=== PATIENT | female | born 1960 | race Caucasian/White ===

== ENCOUNTER 2017-01-28 15:27 | Emergency (ER) | payer MEDICAID ==
[2017-01-28 15:28] VITALS: BMI 25.9
--- NOTE | 2017-01-28 16:04 | C.PDOC ---
56F c/o abdominal pain, nausea, vomiting, diarrhea. she says she ate some chicken soup that "smelled strong" 4 days ago and started feeling pain and nausea and had watery diarrhea that night. she then had some more of the soup the next day and again developed pain and nausea and vomited once that day. since then she has not vomited but has felt nauseated worse when she eats. she also reports some sob for the last week- says she has asthma and also emphysema and took 3 doses of prednisone she had left over at home. she also says she had a lung cancer removed several months ago and that as fat as she knows the cancer is gone. (Laith García) <Gary Lai - Last Filed: 01/28/17 20:44> <Laith García - Last Filed: 01/31/17 08:12> Time Seen by Provider: 01/28/17 15:57 Chief Complaint (Nursing): Shortness Of Breath Past Medical History Reviewed: Historical Data, Nursing Documentation, Vital Signs Family History: States: No Known Family Hx <Gary Lai - Last Filed: 01/28/17 20:44> - Medical History PMH: Anxiety, Asthma, COPD, Depression, Diabetes, Emphysema, HTN, Hypercholesterolemia, Hyperlipidemia, Kidney Stones, Schizophrenia, Seizures Surgical History: Appendectomy, Family History: States: Other Other Family History: nc - Social History Hx Tobacco Use: Yes Hx Alcohol Use: No Hx Substance Use: No - Immunization History Hx Tetanus Toxoid Vaccination: No Hx Influenza Vaccination: No Hx Pneumococcal Vaccination: No <Laith García - Last Filed: 01/31/17 08:12> Vital Signs: Last Vital Signs Temp 99.0 F 01/28/17 20:45 Pulse 93 H 01/28/17 20:45 Resp 18 01/28/17 20:45 BP 93/57 L 01/28/17 20:45 Pulse Ox 95 01/28/17 20:45 - [facility] Procedures CLOSURE SKIN & SUBCUTANEOUS NEC (11/29/14) IMMOBILIZ/WOUND ATTN NEC (10/23/14) TETANUS TOXOID ADMINIST (11/29/14) Review Of Systems Constitutional: Positive for: Weakness, Malaise. Negative for: Fever Cardiovascular: Negative for: Chest Pain Respiratory: Positive for: Shortness of Breath. Negative for: Cough, Hemoptysis Gastrointestinal: Positive for: Nausea, Vomiting, Abdominal Pain, Diarrhea Genitourinary: Negative for: Dysuria <Laith García - Last Filed: 01/31/17 08:12> Physical Exam - Physical Exam Appears: Well, Non-toxic, No Acute Distress Skin: Warm, Dry Eye(s): bilateral: PERRL Nose: No Epistaxis Oral Mucosa: Moist Neck: Supple Cardiovascular: Rhythm Regular Respiratory: No Decreased Breath Sounds, No Accessory Muscle Use, No Rales, No Rhonchi, No Wheezing Gastrointestinal/Abdominal: Soft, Tenderness (mild diffuse non-focal), No Distention, No Guarding, No Rebound Pulses: Left Radial: Normal, Right Radial: Normal Neurological/Psych: Oriented x3, Normal Motor, Normal Sensation <Laith García P - Last Filed: 01/31/17 08:12> ED Course And Treatment - Laboratory Results Result Diagrams: 01/28/17 16:43 01/28/17 16:43 Pulse Ox Interpretation: Normal Reevaluation Time: 20:44 Reassessment Condition: Improved <Gary Lai - Last Filed: 01/28/17 20:44> - Laboratory Results Result Diagrams: 01/28/17 16:43 01/28/17 16:43 O2 Sat by Pulse Oximetry: 97 <Laith García - Last Filed: 01/31/17 08:12> Disposition Counseled Patient/Family Regarding: Studies Performed, Diagnosis, Need For Followup, Rx Given - Disposition Disposition Time: 19:00 <Gary Lai - Last Filed: 01/28/17 20:44> <Laith García - Last Filed: 01/31/17 08:12> - Disposition Referrals: [facility] at [facility] [Outside] [facility] [Outside] Disposition: HOME/ ROUTINE Condition: FAIR Prescriptions: Nitrofurantoin Macrocrystals [Macrobid] 1 cap PO BID #14 cap Ondansetron ODT [Zofran ODT] 1 odt PO BID PRN #6 odt PRN Reason: Nausea/Vomiting Instructions: Urinary Tract Infection in Women (DC), Gas and Bloating (ED), Abdominal Pain (ED) Forms: [facility] ([place]) - Clinical Impression Clinical Impression: Abdominal pain, UTI (urinary tract infection) Physician Patient Turnover Patient Signed Over To: Gary Lai Handoff Comments: pending ct <Laith García - Last Filed: 01/31/17 08:12>
[2017-01-28] MEDS ORDERED: Sodium Chloride 0.9% 1,000 ML IV ONE (16:15)
[2017-01-28] MEDS ORDERED: Albuterol-Ipratrop 3 mg / 0.5 (3 ml) UD IH STA (16:15)
[2017-01-28] MEDS ORDERED: Albuterol-Ipratrop 3 mg / 0.5 (3 ml) UD ONE ×2 (16:48→18:47)
[2017-01-28 16:56] LABS: BASO # 0.1 K/uL (0.0-0.2); BASO % 0.7 % (0.0-2.0); EOS # 0.2 K/uL (0.0-0.7); EOS % 1.2 % (0.0-4.0); HEMATOCRIT 39.4 % (34.0-47.0); LYMPH # 2.9 K/uL (1.0-4.3); LYMPH % 19.6 % (20.0-40.0); MEAN CELL VOLUME 90.5 fL (81.0-99.0); MEAN CORPUSCULAR HEMOGLOBIN 30.5 pg (27.0-31.0); MEAN CORPUSCULAR HGB CONC 33.8 g/dL (33.0-37.0); MEAN PLATELET VOLUME 8.1 fL (7.2-11.7); MONO # 1.1 K/uL (0.0-0.8); MONO % 7.5 % (0.0-10.0); RED CELL DISTRIBUTION WIDTH 12.7 % (11.5-14.5); WHITE BLOOD COUNT 14.9 K/uL (4.8-10.8)
[2017-01-28] MEDS ORDERED: Sodium Chloride 0.9% 1,000 ML ONE (16:56)
--- NOTE | 2017-01-28 16:57 | RAD ---
HISTORY: sob COMPARISON: Comparison is made to 08/21/2014 TECHNIQUE: Chest PA and lateral FINDINGS: LUNGS: No evidence of new infiltrate or consolidation in the lungs. PLEURA: No significant pleural effusion identified. No pneumothorax apparent. CARDIOVASCULAR: Normal. OSSEOUS STRUCTURES: No significant abnormalities. VISUALIZED UPPER ABDOMEN: Normal. OTHER FINDINGS: None. IMPRESSION: No active disease.
[2017-01-28 17:02] LABS: CHLORIDE 98 mmol/L (98-107); SODIUM 143 mmol/L (132-148)
[2017-01-28 17:03] LABS: POTASSIUM 3.4 mmol/L (3.6-5.2)
[2017-01-28 17:05] LABS: ALB/GLOB RATIO 1.4 (1.0-2.1); ALKALINE PHOSPHATASE 67 U/L (38-126); ALT/SGPT 28 U/L (9-52); AST/SGOT 22 U/L (14-36); BILIRUBIN,TOTAL 0.4 mg/dL (0.2-1.3); BLOOD UREA NITROGEN 19 mg/dL (7-17); CARBON DIOXIDE 25 mmol/L (22-30); GFR AFRICAN-AMERICAN > 60; GLUCOSE,RANDOM 84 mg/dL (65-105); TOTAL PROTEIN 7.5 g/dL (6.3-8.3)
[2017-01-28 17:06] LABS: CALCIUM 9.8 mg/dl (8.6-10.4)
[2017-01-28 17:21] LABS: RBC URINE 4 /hpf (0-3); URINE BILIRUBIN NEGATIVE (NEGATIVE); URINE BLOOD NEGATIVE (NEGATIVE); URINE CALCIUM OXALATE CRYSTALS FEW /hpf (<OCC); URINE GLUCOSE (UA) NORMAL (Normal); URINE KETONE TRACE mg/dL (NEGATIVE); URINE LEUKOCYTE ESTERASE 1+ Leu/uL (Negative); URINE PROTEIN 2+ mg/dL (NEGATIVE); URINE UROBILINOGEN NORMAL mg/dL (0.2-1.0); WBC URINE 29 /hpf (0-5)
[2017-01-28 17:23] LABS: URINE COLOR YELLOW (YELLOW)
[2017-01-28 17:49] VITALS: RESP 18
[2017-01-28] MEDS ORDERED: cefTRIAXone IV 1 gm in Dextros 50 ML IVPB ONE (18:38)
[2017-01-28] MEDS ORDERED: Iodixanol 320 mg/ml 150 ml Bottle IV ONE (18:47)
--- NOTE | 2017-01-28 19:53 | CT ---
EXAM: CT Abdomen and Pelvis With Intravenous Contrast EXAM DATE/TIME: Exam ordered 01/28/2017 5:52 PM CLINICAL HISTORY: 56 years old, female; Pain; Abdominal pain; Generalized; Patient HX: H/o lung cancer TECHNIQUE: Axial computed tomography images of the abdomen and pelvis with intravenous contrast. All CT scans at this facility use one or more dose reduction techniques, viz.: automated exposure control; ma/kV adjustment per patient size (including targeted exams where dose is matched to indication; i.e. head); or iterative reconstruction technique. Coronal and sagittal reformatted images were created and reviewed. CONTRAST: 100 mL of visipaque 320 administered intravenously. COMPARISON: No relevant prior studies available. FINDINGS: Lower thorax:A coarse linear opacity in the lingula suggests scar or discoid atelectasis.Hypoventilatory changes are noted in the right lung base. There is mild prominence of the centrilobular core structures in the subpleural portion of the left lung base. This may be hypoventilatory in nature but followup is recommended. ABDOMEN: Liver: Unremarkable. No mass. Gallbladder and bile ducts: Unremarkable. No calcified stones. No ductal dilation. Pancreas: Unremarkable. No mass. No ductal dilation. Spleen: Unremarkable. No splenomegaly. Adrenals: Unremarkable. No mass. Kidneys and ureters: There is a 1.2 cm low density lesion in the upper pole of the left kidney with a density measurement of 20 H. The right kidney is absent. No hydronephrosis. Stomach and bowel: Unremarkable. No obstruction. No mucosal thickening. Appendix: No findings to suggest acute appendicitis. PELVIS: Bladder: Unremarkable. No mass. Reproductive: The uterus is absent. ABDOMEN and PELVIS: Intraperitoneal space: Unremarkable. No free air. No significant fluid collection. Bones/joints: No acute fracture. No dislocation. Soft tissues: Unremarkable. Vasculature: Unremarkable. No abdominal aortic aneurysm. Lymph nodes: Unremarkable. No enlarged lymph nodes. IMPRESSION: 1. No acute findings. 2. Absence of the right kidney. The right adrenal gland is normal. 3. Left renal cyst. 4. Mild prominence of the centrilobular core structures in the subpleural portion of the left lung base. This may be hypoventilatory in nature but followup is recommended. Recommend follow-up chest CT at 3-6 months to confirm persistence. If stable, chest CT at 2 and 4 years.
[2017-01-28 20:45] VITALS: BP 93/57; PULSE 93; TEMP 99
[2017-01-31 08:12] VITALS: O2SAT 97
== END 2017-01-28 21:06 | disposition home or self-care (01) ==
LOC: C.ER 15:27
DX: N39.0 Urinary tract infection, site not specified (principal); R10.9 Unspecified abdominal pain
CPT/HCPCS: 71020; 74177; 80053; 81001; 83690; 84484; 85025; 87086; 94640; 96361; 96365; 96375; 99285; J0696; J2405; J7040; Q9967

== ENCOUNTER 2018-09-01 18:32 | Inpatient (IN) | payer MEDICAID ==
[2018-09-01 18:32] VITALS: BMI 25.9
--- NOTE | 2018-09-01 19:14 | C.PDOC ---
History Of Present Illness 58 year old female with Hx of anxiety, asthma, COPD not on home o2, HTN, high cholesterol, diabetes, surgical Hx of appendectomy, presents with abdominal pain and multiple episodes of diarrhea today after eating popeyes shrimp around 5pm. Patient reports the symptoms are associated with nausea but no vomiting. Denies any fall, trauma, bloody stool, or black stools. Reports some chills but denies fever, nights sweats, SOB, or chest pain. Patient finished zpack yesterday for cold symptoms. She has not taken any medication for her abdominal pain or diarrhea. Time Seen by Provider: 09/01/18 19:14 Chief Complaint (Nursing): Abdominal Pain History Per: Patient History/Exam Limitations: no limitations Onset/Duration Of Symptoms: Hrs Current Symptoms Are (Timing): Still Present Context: Food Location Of Pain/Discomfort: Epigastric, Suprapubic Quality Of Discomfort: Unable To Describe Associated Symptoms: Chills, Nausea, Diarrhea. denies: Fever, Vomiting, Chest Pain, Other (Bloody stools, Black stools, SOB, Night sweats) Exacerbating Factors: None Alleviating Factors: None Recent travel outside of the [place]: No Abnormal Vaginal Bleeding: No Past Medical History Reviewed: Historical Data, Nursing Documentation, Vital Signs Vital Signs: Last Vital Signs Temp 98.9 F 09/01/18 18:42 Pulse 103 H 09/01/18 18:42 Resp 22 09/01/18 18:42 BP 121/91 H 09/01/18 18:42 Pulse Ox 98 09/01/18 18:42 Primary Care Provider: Patel Estes Jr. - Medical History PMH: Anxiety, Asthma, COPD, Depression, Diabetes, Emphysema, HTN, Hypercholesterolemia, Hyperlipidemia, Kidney Stones, Schizophrenia, Seizures Surgical History: Appendectomy, - [facility] Procedures CLOSURE SKIN & SUBCUTANEOUS NEC (11/29/14) IMMOBILIZ/WOUND ATTN NEC (10/23/14) TETANUS TOXOID ADMINIST (11/29/14) Family History: States: Unknown Family Hx - Social History Hx Tobacco Use: Yes Hx Alcohol Use: No Hx Substance Use: No - Immunization History Hx Tetanus Toxoid Vaccination: No Hx Influenza Vaccination: No Hx Pneumococcal Vaccination: No Review Of Systems Constitutional: Negative for: Fever, Sweats Cardiovascular: Negative for: Chest Pain, Palpitations Respiratory: Negative for: Cough, Shortness of Breath Gastrointestinal: Positive for: Nausea, Abdominal Pain, Diarrhea Genitourinary: Negative for: Dysuria, Hematuria Musculoskeletal: Negative for: Back Pain Skin: Negative for: Rash Neurological: Negative for: Weakness, Numbness Physical Exam - Physical Exam Appears: Non-toxic Skin: Normal Color, Warm Head: Atraumatic, Normacephalic Eye(s): bilateral: Normal Inspection, PERRL, EOMI Nose: Normal Oral Mucosa: Moist Tongue: Normal Appearing Lips: Normal Appearing Throat: Normal, No Erythema, No Exudate, No Drooling, No Mass Neck: Normal, Supple, Other (no meningeal signs) Chest: Symmetrical, No Tenderness Cardiovascular: Rhythm Regular Respiratory: Normal Breath Sounds, No Rales, No Rhonchi, No Wheezing Gastrointestinal/Abdominal: Soft, Tenderness (Epigastric, Suprapubic), No Distention, No Guarding, No Rebound Back: Normal Inspection, No CVA Tenderness, No Vertebral Tenderness Extremity: Normal ROM, No Tenderness Extremity: Bilateral: Atraumatic, Normal Color And Temperature Pulses: Left Dorsalis Pedis: Normal, Right Dorsalis Pedis: Normal Neurological/Psych: Oriented x3, Normal Speech, Normal Cognition, No Normal Cranial Nerves, No Cerebellar Signs, Normal Motor Gait: Steady ED Course And Treatment - Laboratory Results Result Diagrams: 09/02/18 08:09 09/02/18 08:09 O2 Sat by Pulse Oximetry: 98 (room air) Pulse Ox Interpretation: Normal Medical Decision Making Medical Decision Makin yr old female p/w abd pain, diarrhea after eating shrimp and popeyes. Mild abd tpp on exam. NO CP or back pain. NO urinary complaints or vaginal d/c. No fall or trauma or rash. Gastroenteritis vs colitis, will seek imaging and labs. 1018 elevated WBC on labs, normal lactic entercolitis on ct cipro flagyl ordered pt in NAD negative cdiff appreciate consult w/ dr. carter: to tele pt in NAD, agreeable to plan. Disposition - Disposition Disposition: HOSPITALIZED Disposition Time: 22:19 Condition: STABLE - Clinical Impression Clinical Impression: Enterocolitis - Scribe Statement The provider has reviewed the documentation as recorded by the Scribe Kofi Mac All medical record entries made by the Calderonibmelissa were at my direction and personally dictated by me. I have reviewed the chart and agree that the record accurately reflects my personal performance of the history, physical exam, medical decision making, and the department course for this patient. I have also personally directed, reviewed, and agree with the discharge instructions and disposition.
[2018-09-01 19:47] LABS: BASO % 0.2 % (0.0-2.0); EOS # 0.1 K/uL (0.0-0.7); EOS % 0.6 % (0.0-4.0); LYMPH # 1.2 K/uL (1.0-4.3); LYMPH % 6.9 % (20.0-40.0); MEAN CELL VOLUME 92.4 fL (81.0-99.0); MEAN CORPUSCULAR HEMOGLOBIN 30.5 pg (27.0-31.0); MEAN PLATELET VOLUME 9.1 fL (7.2-11.7); MONO # 0.4 K/uL (0.0-0.8); MONO % 2.4 % (0.0-10.0); NEUT # 15.7 K/uL (1.8-7.0); NEUT % 89.9 % (50.0-75.0); NRBC % 0.2 % (0.0-2.0); PLATELET COUNT 311 K/uL (130-400); RBC 5.37 Mil/uL (3.80-5.20); RED CELL DISTRIBUTION WIDTH 13.1 % (11.5-14.5); WHITE BLOOD COUNT 17.5 K/uL (4.8-10.8)
[2018-09-01 19:48] LABS: HEMOGLOBIN 16.4 g/dL (11.0-16.0)
[2018-09-01] MEDS: Sodium Chloride 0.9% 1,000 ML IV SCH (19:53)
[2018-09-01] MEDS ORDERED: Sodium Chloride 0.9% 1,000 ML ONE (19:55)
[2018-09-01 20:03] LABS: ALB/GLOB RATIO 1.4 (1.0-2.1); ALBUMIN 5.2 g/dL (3.5-5.0); ALT/SGPT 33 U/L (9-52); AST/SGOT 36 U/L (14-36); BLOOD UREA NITROGEN 25 mg/dL (7-17); CALCIUM 10.5 mg/dl (8.6-10.4); GFR NON-AFRICAN AMERICAN 57; LIPASE 102 U/L (23-300)
[2018-09-01 20:26] LABS: BANDS 22 % (0-2); LYMPHOCYTE 10 % (20-40); MONOCYTE 7 % (0-10); NEUTROPHIL 61 % (50-75); TOTAL CELLS COUNTED 100
[2018-09-01 20:27] LABS: PLATELET ESTIMATE NORMAL (NORMAL)
[2018-09-01 20:53] LABS: VENOUS BLOOD GAS BASE EXCESS -5.2 mmol/L (0.0-2.0); VENOUS BLOOD GAS PCO2 51 mmHg (40-60); VENOUS BLOOD GAS PO2 19 mm/Hg (30-55); VENOUS BLOOD PH 7.25 (7.32-7.43)
[2018-09-01] MEDS ORDERED: Iohexol 300 100 ML IJ ONE (21:25)
[2018-09-01] MEDS ORDERED: Ciprofloxacin 400mg/200ml D5W 400 MG/200 ML BAG IVPB STA (22:06)
[2018-09-01] MEDS ORDERED: metroNIDAZOLE IV 500 mg/100 ml 500 MG/100 ML BAG IVPB STA (22:06)
[2018-09-01] MEDS ORDERED: Ciprofloxacin 400mg/200ml D5W 400 MG/200 ML BAG IVPB ONE (22:39)
[2018-09-01] MEDS ORDERED: metroNIDAZOLE IV 500 mg/100 ml 500 MG/100 ML BAG ONE (22:40)
[2018-09-01 22:53] VITALS: RESP 20
[2018-09-01 23:34] LABS: SQUAMOUS EPITHIAL 2 /hpf (0-5); URINE BILIRUBIN NEGATIVE (NEGATIVE); URINE BLOOD NEGATIVE (NEGATIVE); URINE CLARITY Clear (Clear); URINE COLOR Yellow (YELLOW); URINE GLUCOSE (UA) NORMAL (Normal); URINE LEUKOCYTE ESTERASE NEG Leu/uL (Negative); URINE PROTEIN NEGATIVE (NEGATIVE); URINE UROBILINOGEN NORMAL mg/dL (0.2-1.0)
[2018-09-02] MEDS: metroNIDAZOLE IV 500 mg/100 ml 500 MG/100 ML BAG IVPB SCH ×3 (05:20→20:00)
[2018-09-02] MEDS: Ciprofloxacin 400mg/200ml D5W 400 MG/200 ML BAG IVPB SCH ×2 (08:24→21:29)
[2018-09-02 08:31] LABS: BASO % 0.3 % (0.0-2.0); EOS # 0.1 K/uL (0.0-0.7); EOS % 0.8 % (0.0-4.0); LYMPH # 1.7 K/uL (1.0-4.3); LYMPH % 13.6 % (20.0-40.0); MEAN CORPUSCULAR HEMOGLOBIN 30.2 pg (27.0-31.0); MEAN CORPUSCULAR HGB CONC 32.4 g/dL (33.0-37.0); MEAN PLATELET VOLUME 8.5 fL (7.2-11.7); MONO % 8.5 % (0.0-10.0); NEUT # 9.4 K/uL (1.8-7.0); NEUT % 76.8 % (50.0-75.0); RBC 3.95 Mil/uL (3.80-5.20); RED CELL DISTRIBUTION WIDTH 12.9 % (11.5-14.5); WHITE BLOOD COUNT 12.3 K/uL (4.8-10.8)
[2018-09-02 08:40] LABS: HEMOGLOBIN 11.9 g/dL (11.0-16.0)
[2018-09-02 08:44] LABS: ALB/GLOB RATIO 1.6 (1.0-2.1); ALBUMIN 3.6 g/dL (3.5-5.0); ALT/SGPT 30 U/L (9-52); AST/SGOT 28 U/L (14-36); BLOOD UREA NITROGEN 24 mg/dL (7-17); CALCIUM 8.5 mg/dl (8.6-10.4); GFR NON-AFRICAN AMERICAN > 60
--- NOTE | 2018-09-02 10:20 | CT ---
Date of service: 09/01/2018 PROCEDURE: CT Abdomen and Pelvis with contrast HISTORY: supapubic pain, diarrhea after shrimp COMPARISON: 01/28/2017 TECHNIQUE: Contrast dose: 100 mL Omnipaque 300 Radiation dose: Total exam DLP = 960.71 mGy-cm. This CT exam was performed using one or more of the following dose reduction techniques: Automated exposure control, adjustment of the mA and/or kV according to patient size, and/or use of iterative reconstruction technique. FINDINGS: LOWER THORAX: Unremarkable. LIVER: Unremarkable. No gross lesion or ductal dilatation. GALLBLADDER AND BILE DUCTS: Unremarkable. PANCREAS: Unremarkable. No gross lesion or ductal dilatation. SPLEEN: Unremarkable. ADRENALS: Unremarkable. No mass. KIDNEYS AND URETERS: Absent right kidney. Likely developmental. No surgical clips seen in right renal fossa. Left kidney significant only for stable low-density mass in the upper pole, 1.5 cm diameter, likely cortical cyst. No calculus or hydronephrosis. VASCULATURE: Unremarkable. No aortic aneurysm. There is atherosclerotic calcification of the abdominal aorta. BOWEL: Unremarkable. No obstruction. No gross mural thickening. APPENDIX: Not identified. No secondary findings to suggest acute appendicitis PERITONEUM: Unremarkable. No free fluid. No free air. LYMPH NODES: Unremarkable. No enlarged lymph nodes. BLADDER: Unremarkable. REPRODUCTIVE: Status post hysterectomy BONES: No acute fracture. OTHER FINDINGS: None. IMPRESSION: No acute abnormality. Absent right kidney, likely developmental. Additional nonacute findings as above. The preliminary findings for this examination were reported by [facility] at 9:54 p.m. on 09/01/2018. There is discordance of this report with the preliminary findings. There is no evidence of enterocolitis in this examination
--- NOTE | 2018-09-02 10:34 | CP.PCM.PN ---
Subjective - Date & Time of Evaluation Date of Evaluation: 09/02/18 Time of Evaluation: 10:34 - Subjective Subjective: H&P dictated #[id number] Objective - Vital Signs/Intake and Output Vital Signs (last 24 hours): Temp Pulse Resp BP Pulse Ox 98.2 F 81 20 104/67 95 09/02/18 07:30 09/02/18 07:30 09/02/18 07:30 09/02/18 07:30 09/02/18 07:30 Intake and Output: 09/02/18 09/02/18 06:59 18:59 Intake Total 700 Balance 700 - Medications Medications: Current Medications Heparin Sodium (Porcine) (Heparin) 5,000 units SC Q12 JOSE Last Admin: 09/02/18 09:50 Dose: 5,000 units Sodium Chloride (Sodium Chloride 0.9%) 1,000 mls @ 100 mls/hr IV .Q10H JOSE Last Admin: 09/01/18 19:53 Dose: 100 mls/hr Ciprofloxacin (Cipro 400mg/200ml Dsw) 400 mg in 200 mls @ 133 mls/hr IVPB Q12H JOSE; Protocol Last Admin: 09/02/18 08:24 Dose: 133 mls/hr Metronidazole (Flagyl) 500 mg in 100 mls @ 100 mls/hr IVPB Q8H JOSE; Protocol Last Admin: 09/02/18 05:20 Dose: 100 mls/hr - Labs Labs: 09/02/18 08:09 09/02/18 08:09
[2018-09-02] MEDS: Sodium Chloride 0.9% 1,000 ML IV SCH (16:30)
--- NOTE | 2018-09-03 03:41 | HP ---
CHIEF COMPLAINT: Multiple episodes of vomiting and diarrhea after she ate mosotho shrimp and sandwich yesterday. HISTORY OF PRESENT ILLNESS: Ms. Barbour is a 58-year-old female with a past medical history of asthma, COPD, depression, diabetes, emphysema, hypertension, hyperlipidemia, lumbar stenosis, lumbar disk herniation, absent left kidney of congenital, osteopenia, lupus, status post lung resection about two years ago for lung nodule, did not receive any chemotherapy or radiation therapy who has been following up with Dr. 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 Came into the emergency room after the patient started having multiple episodes of vomiting and diarrhea which started yesterday night. As per the patient, she ate sandwich which she bought outside yesterday morning. Later, she went to and had shrimp with mashed potatoes. The patient started feeling wired. Later after she got home, she had been vomiting continuously, and then she had multiple episodes of diarrhea of watery, and she felt very sweaty, diaphoretic. The patient decided to come to the emergency room. 911 was called. In the ED, the patient was found to be dehydrated with multiple episodes of diarrhea, and the patient has been admitted. When I examined, she denied any headache or dizziness. Denied any chest pain, shortness of breath, or wheezing. Denied any nausea or vomiting. Denied any further episodes of diarrhea. Denies any abdominal pain. Denies any blood or mucus in the stool. Denies any pain associated with bowel movement. Denies any neurologic symptoms. All other systems reviewed and were negative. PAST MEDICAL HISTORY: As described, lupus, depression, anxiety, osteopenia, COPD, status post lung resection, diabetes mellitus, hypertension, hyperlipidemia, lumbar disk herniation, and congenital absent kidney. PAST SURGICAL HISTORY: Underwent lung resection, hysterectomy, , bunion surgery. FAMILY HISTORY: Father from cancer. PERSONAL HISTORY: She is . Having three children. Disabled. SOCIAL HISTORY: She smokes 6 to 10 cigarettes per day. Denies any alcohol or drug abuse. ALLERGIES: SHE IS ALLERGIC TO PENICILLIN, TORADOL, ASPIRIN, AND KETOROLAC. HOME MEDICATIONS: Include Percocet as needed, Lidoderm, Ambien 5 mg, Spiriva, metformin 500 p.o. b.i.d., meloxicam 15 mg daily, Feosol 325 mg daily, Lipitor 40 mg at dinner, albuterol inhaler, alprazolam 0.25 mg as needed, vitamin D, amitriptyline 10 mg daily, Avapro 75 mg daily, hydroxychloroquine 200 mg p.o. daily, Advair Diskus daily. REVIEW OF SYSTEMS: As described in history of present illness. All other systems reviewed and were found to be negative. PHYSICAL EXAMINATION: GENERAL: Middle-aged female, lying in bed, in no acute distress. VITAL SIGNS: Blood pressure 102/61, pulse 80, respirations 20, temperature 97.8 degrees Fahrenheit, and O2 sat is 98% on room air. HEENT: Pupils are equal, round, and reacting to light and accommodation. Extraocular muscles are intact. No icterus. No pallor. No oral thrush. No pharyngeal congestion. NECK: Supple. No JVD. No thyromegaly. CHEST: Moving equally bilaterally on respiration. LUNGS: Bilateral vesicular breath sounds. No wheezing. No rhonchi. CARDIOVASCULAR SYSTEM: S1 and S2 present, regular. ABDOMEN: Soft and nontender. Bowel sounds are present. No guarding. No rigidity. No rebound tenderness noted. CENTRAL NERVOUS SYSTEM: Alert, awake, and oriented x3. No focal deficits noted. EXTREMITIES: No edema. Palpable peripheral pulses. LABORATORY DATA: Labs done from the ED: WBC 15.5, hemoglobin is 16.4, hematocrit 49.6, 22, platelets 311. Sodium 144, potassium 3.9, chloride 102, bicarbonate 25, BUN 25, creatinine 1, glucose 153, calcium 10.5. Total protein 8.9, albumin 5.2, AST 36, ALT 33, lipase 102. UA negative. C. difficile negative. CT of the abdomen and pelvis consistent with absent right kidney, pulmonary additional non-acute findings. ASSESSMENT AND PLAN: A middle aged female with history of lupus, depression, anxiety disorder, osteopenia, chronic obstructive pulmonary disease, status post lobectomy, diabetes mellitus, hypertension, hyperlipidemia, absent right kidney who has been following up with Dr. 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 Admitted for acute gastroenteritis after eating shrimp and dehydration. 1. Acute gastroenteritis, rule out bacterial versus viral etiology, dehydration, azotemia. 2. History of lupus. 3. History of diabetes mellitus. 4. History of hypertension. 5. Hyperlipidemia. 6. Chronic obstructive pulmonary disease, status post lobectomy. 7. Osteopenia. PLAN: The patient is being admitted to medical floor, received hydration. The patient was kept NPO. Clear liquid started after the patient's symptoms improved. Continue with ciprofloxacin 400 mg IV every 12 hour and Flagyl 500 mg IV every 8 hours. Repeat labs. Check stool workup. Continue with her home medications. We will add further recommendation as her clinical course progresses. Shayna Katz MD
[2018-09-03] MEDS: Sodium Chloride 0.9% 1,000 ML IV SCH (04:04)
[2018-09-03] MEDS: metroNIDAZOLE IV 500 mg/100 ml 500 MG/100 ML BAG IVPB SCH ×2 (06:04→14:11)
[2018-09-03 07:55] VITALS: BP 125/76; PULSE 74; TEMP 97.9; O2SAT 96
[2018-09-03] MEDS: Ciprofloxacin 400mg/200ml D5W 400 MG/200 ML BAG IVPB SCH (09:50)
--- NOTE | 2018-09-03 11:08 | CP.PCM.PN ---
Subjective - Date & Time of Evaluation Date of Evaluation: 09/03/18 Time of Evaluation: 11:08 - Subjective Subjective: Discharge summary dictated #[id number] Objective - Vital Signs/Intake and Output Vital Signs (last 24 hours): Temp Pulse Resp BP Pulse Ox 97.9 F 74 20 125/76 96 09/03/18 07:54 09/03/18 07:54 09/03/18 07:54 09/03/18 07:54 09/03/18 07:54 - Medications Medications: Current Medications Heparin Sodium (Porcine) (Heparin) 5,000 units SC Q12 JOSE Last Admin: 09/03/18 09:46 Dose: 5,000 units Sodium Chloride (Sodium Chloride 0.9%) 1,000 mls @ 100 mls/hr IV .Q10H JOSE Last Admin: 09/03/18 04:04 Dose: 100 mls/hr Ciprofloxacin (Cipro 400mg/200ml Dsw) 400 mg in 200 mls @ 133 mls/hr IVPB Q12H JOSE; Protocol Last Admin: 09/03/18 09:50 Dose: 133 mls/hr Metronidazole (Flagyl) 500 mg in 100 mls @ 100 mls/hr IVPB Q8H JOSE; Protocol Last Admin: 09/03/18 06:04 Dose: 100 mls/hr - Labs Labs: 09/02/18 08:09 09/02/18 08:09
[2018-09-03 14:01] LABS: BASO % 0.3 % (0.0-2.0); EOS # 0.2 K/uL (0.0-0.7); EOS % 2.8 % (0.0-4.0); HEMOGLOBIN 12.4 g/dL (11.0-16.0); LYMPH # 1.1 K/uL (1.0-4.3); LYMPH % 14.4 % (20.0-40.0); MEAN CELL VOLUME 93.2 fL (81.0-99.0); MEAN CORPUSCULAR HEMOGLOBIN 31.6 pg (27.0-31.0); MEAN CORPUSCULAR HGB CONC 33.9 g/dL (33.0-37.0); MEAN PLATELET VOLUME 8.3 fL (7.2-11.7); MONO # 0.7 K/uL (0.0-0.8); MONO % 8.7 % (0.0-10.0); NEUT # 5.7 K/uL (1.8-7.0); NEUT % 73.8 % (50.0-75.0); RBC 3.94 Mil/uL (3.80-5.20); RED CELL DISTRIBUTION WIDTH 13.1 % (11.5-14.5); WHITE BLOOD COUNT 7.7 K/uL (4.8-10.8)
[2018-09-03 14:15] LABS: ALB/GLOB RATIO 1.4 (1.0-2.1); ALBUMIN 3.7 g/dL (3.5-5.0); ALT/SGPT 25 U/L (9-52); AST/SGOT 22 U/L (14-36); BLOOD UREA NITROGEN 12 mg/dL (7-17); CALCIUM 8.8 mg/dl (8.6-10.4); GFR NON-AFRICAN AMERICAN > 60
--- NOTE | 2018-09-04 11:20 | DS ---
DISCHARGE DIAGNOSES: Acute gastroenteritis, viral versus bacterial etiology; history of lupus; depression; anxiety; chronic obstructive pulmonary disease; diabetes mellitus; hypertension; hyperlipidemia; and osteopenia. HISTORY OF PRESENT ILLNESS: Ms. 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 Today, the patient is feeling much better. Denies any headache or dizziness. Denies any chest pain, shortness of breath, or wheezing. Denies any nausea, vomiting, abdominal pain, diarrhea, or constipation. Denies any urinary complaints. Denies any leg pains or leg cramps. Denies any other neurologic symptoms. All other systems reviewed and were found to be negative. PHYSICAL EXAMINATION: GENERAL: A middle-aged female, lying in bed, in no acute distress. VITAL SIGNS: Blood pressure 125/76, pulse 74, respirations 20, temperature 97.9 degrees Fahrenheit, and O2 sat is 96% on room air. HEENT: Pupils equal, round, and reacting to light and accommodation. Extraocular muscles intact. No icterus. No pallor. No oral thrush. No pharyngeal congestion. NECK: Supple. No JVD. No thyromegaly. CHEST: Moving equally bilaterally on respiration. LUNGS: Bilateral vesicular breath sounds. No wheezing. No rhonchi. CARDIOVASCULAR SYSTEM: S1 and S2 present and regular. ABDOMEN: Soft and nontender. Bowel sounds present. No guarding, no rigidity, no rebound tenderness noted. CENTRAL NERVOUS SYSTEM: Alert, awake, and oriented x3. No focal deficits noted. EXTREMITIES: No edema. Palpable peripheral pulses. LABORATORY DATA: Labs done from today: WBC 7.7, hemoglobin 12.4, hematocrit 36.7, platelets 240. Sodium 141, potassium 3.9, chloride 106, bicarb 26, BUN 12, creatinine 0.5, glucose 109, calcium 8.8, phosphorus 2.5, magnesium 1.6. AST 22, ALT 25, alkaline phosphatase 56, total protein 6.2, albumin 3.7. Stool leukocytes negative. Stool culture negative. Blood cultures negative. Urine culture negative growth. CT of the abdomen and pelvis, no acute abnormality, absent right kidney. HOSPITAL COURSE: The patient was admitted to the hospital, kept n.p.o, started on IV fluids and all her medications. Received ciprofloxacin and Flagyl in the emergency room, which were continued. Once the patient stopped having diarrhea, her diet was advanced. The patient has been tolerating the p.o. diet without any nausea, vomiting, or diarrhea, and the patient's labs returned to normal and the patient is anxious to be discharged. The patient is feeling better and improving. The patient is being discharged. Then, I advised the patient to follow with her PMD and Rheumatology as outpatient. CONDITION UPON DISCHARGE: The patient is alert, awake, oriented x3, and hemodynamically stable at the time of discharge. DISCHARGE INSTRUCTIONS: Follow up with PMD. Followup with Rheumatology. DISCHARGE MEDICATIONS: Include albuterol inhaler, Xanax as needed, Elavil as needed, Lipitor 10 mg daily, vitamin D, ferrous sulfate, Plaquenil 200 mg p.o. daily, Avapro 75 mg daily, metformin 500 mg p.o. b.i.d., Spiriva, Ambien, and Flagyl 500 mg p.o. every 8 hours for 3 days. DISCHARGE DIET: Heart-healthy, low-sodium, 1800-calorie ADA diet. ACTIVITY: As tolerated. I advised the patient to return to the ED or call me if any worsening of the symptoms. Shayna Katz MD
--- NOTE | 2018-09-05 14:19 | CARD ---
APPROVED REPORT Date of service: 09/01/2018 EKG Measurement Heart [id number] <Conclusion> Normal sinus rhythm Possible Left atrial enlargement Borderline ECG
== END 2018-09-03 15:38 | disposition home or self-care (01) | DRG 813 ==
LOC: C.ER 18:32 → C.9E 22:20 → C.5S 22:59
PROVIDERS: ADMIT Internal Medicine; ATTEND Internal Medicine
DX: A08.4 Viral intestinal infection, unspecified (principal); A04.9 Bacterial intestinal infection, unspecified; E86.0 Dehydration; M32.9 Systemic lupus erythematosus, unspecified; I10 Essential (primary) hypertension; E11.9 Type 2 diabetes mellitus without complications; J43.9 Emphysema, unspecified; R56.9 Unspecified convulsions; F20.9 Schizophrenia, unspecified; E78.5 Hyperlipidemia, unspecified; J00 Acute nasopharyngitis [common cold]; F17.210 Nicotine dependence, cigarettes, uncomplicated; M85.80 Other specified disorders of bone density and structure, unspecified site; F41.8 Other specified anxiety disorders; E78.00 Pure hypercholesterolemia, unspecified; Z87.442 Personal history of urinary calculi; Z90.2 Acquired absence of lung [part of]; Z90.710 Acquired absence of both cervix and uterus; Z90.5 Acquired absence of kidney; M48.061 Spinal stenosis, lumbar region without neurogenic claudication; M51.26 Other intervertebral disc displacement, lumbar region; Z80.9 Family history of malignant neoplasm, unspecified